=== PATIENT | female | born 1960 | race Caucasian/White ===

== ENCOUNTER 2018-04-25 12:39 | Emergency (ER) | payer SELFPAY ==
[~2018-04-25] VITALS: Ht 162.6 cm; Wt 69.4 kg
--- NOTE | 2018-04-25 12:44 | NUR ---
PT AMBULATES TO BED 6
[2018-04-25 12:47] VITALS: BP 191/107
--- NOTE | 2018-04-25 12:57 | NUR ---
PT COMES TO ER WITH C/O LEFT TOOTHACHE X 1 WEEK, WORSEING WITH SWELLING NOTED X 2 DAYS. DENIES ANY FEVERS/CHILLS. RESP EVEN AND UNLABORED, PT REPORTS BEING UNABLE TO SEE A DENTIST. MED HX: HYPOTHYROIDISM MEDS:LEVOTHYROXINE
[2018-04-25] MEDS ORDERED: traMADol 50 MG TAB PO ONE (13:15)
[2018-04-25 13:19] VITALS: BP 176/99
--- NOTE | 2018-04-25 13:25 | NUR ---
Patient discharged with v/s stable. Written and verbal after care instructions given and explained. Patient alert, oriented and verbalized understanding of instructions. Ambulatory with steady gait. All questions addressed prior to discharge. ID band removed. Patient advised to follow up with PMD. Rx of PCN, TRAMADOL given. Patient educated on indication of medication including possible reaction and side effects. Opportunity to ask questions provided and answered.
== END 2018-04-25 13:25 | disposition home or self-care (01) ==
LOC: MED 12:39
DX: K08.89 Other specified disorders of teeth and supporting structures (principal); E03.9 Hypothyroidism, unspecified
CPT/HCPCS: 99283